=== PATIENT | female | born 1950 | race Caucasian/White ===

== ENCOUNTER → 2023-07-29 08:03 | Outpatient (REF) | payer MEDICARE, OTHER, SELFPAY | LOC: HWRCS 08:03 | PROVIDERS: ATTENDING PHYSICIAN Internal Medicine Cardiovascular Disease; FAMILY PHYSICIAN Internal Medicine | DX: R00.2 Palpitations (principal); I47.19 Other supraventricular tachycardia | CPT/HCPCS: 93306 ==

== ENCOUNTER → 2023-11-20 07:26 | Outpatient (REF) | payer MEDICARE, OTHER, SELFPAY | LOC: DHCBC/DCA 07:26 | PROVIDERS: ATTENDING PHYSICIAN Internal Medicine Cardiovascular Disease; FAMILY PHYSICIAN Internal Medicine | DX: R00.2 Palpitations (principal); I47.19 Other supraventricular tachycardia; R06.09 Other forms of dyspnea | CPT/HCPCS: 78452; 93017; A9500 ==

== ENCOUNTER → 2023-12-18 07:27 | Outpatient (REF) | payer MEDICARE, OTHER, SELFPAY ==
[2023-12-18 09:09] LABS: Hematocrit 39.6 % (37.0-47.0); Hemoglobin 13.6 g/dL (12.0-16.0); Mean Corp Hgb Conc. 34.3 g/dL (33.0-37.0); Mean Corpuscular Hgb 30.9 pg (27.0-31.0); Mean Platelet Volume 9.6 fL (7.4-10.4); Platelet Count 226 10^3/uL (130-400); Red Cell Dist. Width 12.1 % (11.5-14.5); White Blood Cell Count 3.9 10^3/uL (4.8-10.8)
[2023-12-18 12:31] LABS: Blood Urea Nitrogen 17 mg/dl (7-17); Carbon Dioxide 27 mmol/L (22-30); Chloride 104 mmol/L (98-107); Glucose 89 mg/dl (70-99); Potassium 4.7 mmol/L (3.5-5.1); Sodium 142 mmol/L (135-145); eGFR > 60.00
== END ==
LOC: SDSPAT 07:27
PROVIDERS: ATTENDING PHYSICIAN Obstetrics & Gynecology; FAMILY PHYSICIAN Internal Medicine
DX: Z01.818 Encounter for other preprocedural examination (principal)
CPT/HCPCS: 36415; 80048; 85027; 86850; 86900; 86901; 93005

== ENCOUNTER 2023-12-30 06:28 | Day surgery (SDC) | payer MEDICARE, OTHER, SELFPAY ==
[2023-12-18 07:51] VITALS: BMI 36.7
[2023-12-30] VITALS (12 sets, daily range): BP systolic 99–132; BP diastolic 50–72; BMI 36.7
[2023-12-30] MEDS: NORMOSOL-R/PLASMALYTE-A 1000 IV (09:55)
[2023-12-30] MEDS: Pyridium 200 MG PO (10:33)
[2023-12-30] MEDS: MOTRIN 600 MG PO (16:17)
== END 2023-12-30 17:45 | disposition home or self-care (01) ==
LOC: SDS 06:28
PROVIDERS: ATTENDING PHYSICIAN Obstetrics & Gynecology
DX: N81.11 Cystocele, midline (principal); N39.3 Stress incontinence (female) (male); Z92.3 Personal history of irradiation; N36.41 Hypermobility of urethra
CPT/HCPCS: 57282; 57240; 51715; 86900; 86901; L8606

== ENCOUNTER → 2024-03-27 07:39 | Outpatient (REF) | payer MEDICARE, OTHER, SELFPAY ==
[2024-03-27 09:23] LABS: % Basophils 1.8 % (0-2); % Eosinophils 5.7 % (0-6); % Immature Granulocytes 0.4 % (0-0.5); % Lymphocytes 24.6 % (20.5-51.1); % Monocytes 7.6 % (1.7-9.3); % Neutrophils 59.9 % (42.2-75.2); Absolute Basophils 0.1 10^3/uL (0-0.2); Absolute Eosinophils 0.3 10^3/uL (0-0.7); Absolute Lymphocytes 1.3 10^3/uL (1.2-3.4); Absolute Monocytes 0.4 10^3/uL (0.1-0.6); Absolute Neutrophils 3.2 10^3/uL (1.4-6.5); Hematocrit 43.8 % (37.0-47.0); Hemoglobin 14.4 g/dL (12.0-16.0); Mean Corp Hgb Conc. 32.9 g/dL (33.0-37.0); Mean Corpuscular Hgb 30.2 pg (27.0-31.0); Mean Corpuscular Volume 91.8 fL (81.0-99.0); Mean Platelet Volume 9.5 fL (7.4-10.4); Nucleated Red Blood Cells % 0 %; Platelet Count 246 10^3/uL (130-400); Red Blood Cell Count 4.77 10^6/uL (4.20-5.40); Red Cell Dist. Width 12.2 % (11.5-14.5); White Blood Cell Count 5.4 10^3/uL (4.8-10.8)
[2024-03-27 09:26] LABS: Urine Albumin Trace (Neg - Trace); Urine Bilirubin Negative (Negative); Urine Character Slightly Cloudy (Clear); Urine Color Yellow; Urine Glucose Negative (Negative); Urine Ketone Negative (Negative); Urine Leukocyte 2+ (Negative); Urine Nitrite Negative (Negative); Urine Occult Blood Trace (Negative); Urine Urobilinogen Negative (Neg - 1+)
[2024-03-27 09:35] LABS: ALT (SGPT) 20 U/L (0-35); AST (SGOT) 22 U/L (14-36); Albumin 4.4 g/dl (3.5-5.0); Alkaline Phosphatase 71 U/L (38-126); Blood Urea Nitrogen 17 mg/dl (7-17); Calcium 9.1 mg/dl (8.4-10.2); Carbon Dioxide 30 mmol/L (22-30); Chloride 102 mmol/L (98-107); Glucose 115 mg/dl (70-99); HDL Cholesterol 51 mg/dl; LDL Cholesterol, Calculated 115 mg/dl; Potassium 4.9 mmol/L (3.5-5.1); Sodium 141 mmol/L (135-145); Total Bilirubin 0.4 mg/dl (0.2-1.3); Total Cholesterol 185 mg/dl (50-199); Total Protein 7.1 g/dl (6.3-8.2); Triglyceride 99 mg/dl (10-149); Very Low Density Lipoprotein 19 mg/dl (0-30); eGFR > 60.00
[2024-03-27 09:53] LABS: Urine Bacteria Few (Negative); Urine Squamous Cell 26-30 /LPF (Few); Urine White Cell 16-20 /HPF (0-5)
[2024-03-27 10:06] LABS: Cortisol, Random 13.8 ug/dl; TSH 2.25 uIU/ml (0.47-4.68)
[2024-03-27 12:14] LABS: Glycohemoglobin (HgbA1c) 5.6 % (4.0-5.6)
== END ==
LOC: HWLAB 07:39
PROVIDERS: ATTENDING PHYSICIAN Internal Medicine
DX: N32.81 Overactive bladder (principal); E66.9 Obesity, unspecified; R63.5 Abnormal weight gain; K21.9 Gastro-esophageal reflux disease without esophagitis; K58.0 Irritable bowel syndrome with diarrhea
CPT/HCPCS: 36415; 80053; 80061; 81003; 81015; 82533; 83036; 83735; 84443; 85025

== ENCOUNTER → 2024-04-14 14:00 | Outpatient (REF) | payer MEDICARE, OTHER, SELFPAY | LOC: HWRAD 14:00 | PROVIDERS: ATTENDING PHYSICIAN Internal Medicine | DX: U07.1 COVID-19 (principal) | CPT/HCPCS: 71046 ==

== ENCOUNTER → 2024-04-17 13:02 | Outpatient (REF) | payer MEDICARE, OTHER, SELFPAY ==
[2024-04-17 16:49] LABS: Urine Albumin Negative (Neg - Trace); Urine Bilirubin Negative (Negative); Urine Character Clear (Clear); Urine Color Yellow; Urine Glucose Negative (Negative); Urine Ketone Negative (Negative); Urine Leukocyte 1+ (Negative); Urine Nitrite Negative (Negative); Urine Occult Blood Negative (Negative); Urine Specific Gravity 1.005 (<1.030); Urine Urobilinogen Negative (Neg - 1+)
[2024-04-17 17:11] LABS: Urine Red Blood Cell 0-2 /HPF (0-2)
[2024-04-17 17:12] LABS: Urine Bacteria Few (Negative)
== END ==
LOC: HWLAB 13:02
PROVIDERS: ATTENDING PHYSICIAN Obstetrics & Gynecology; FAMILY PHYSICIAN Internal Medicine
DX: N39.0 Urinary tract infection, site not specified (principal)
CPT/HCPCS: 81003; 81015; 87077; 87086

== ENCOUNTER → 2024-04-24 13:56 | Outpatient (REF) | payer MEDICARE, OTHER, SELFPAY | LOC: WDC 13:56 | PROVIDERS: ATTENDING PHYSICIAN Internal Medicine | DX: Z12.31 Encounter for screening mammogram for malignant neoplasm of breast (principal) | CPT/HCPCS: 77063; 77067 ==

== ENCOUNTER 2024-05-14 06:35 | Day surgery (SDC) | payer MEDICARE, OTHER, SELFPAY | END 2024-05-14 09:54 | disposition home or self-care (01) | LOC: GI 06:35 | PROVIDERS: ATTENDING PHYSICIAN Internal Medicine; FAMILY PHYSICIAN Internal Medicine | DX: K63.5 Polyp of colon (principal); K63.89 Other specified diseases of intestine; K57.30 Diverticulosis of large intestine without perforation or abscess without bleeding; R19.4 Change in bowel habit; R15.2 Fecal urgency; K31.89 Other diseases of stomach and duodenum; K44.9 Diaphragmatic hernia without obstruction or gangrene; Q39.9 Congenital malformation of esophagus, unspecified; R11.10 Vomiting, unspecified; R12 Heartburn; Z85.048 Personal history of other malignant neoplasm of rectum, rectosigmoid junction, and anus; Z92.3 Personal history of irradiation | CPT/HCPCS: 45380; 43239; 88305; 88342 ==

== ENCOUNTER 2024-08-11 06:30 | Outpatient (RCR) | payer MEDICARE, OTHER, SELFPAY | END 2024-08-11 23:59 | disposition home or self-care (01) | LOC: RPT 06:30 | PROVIDERS: ATTENDING PHYSICIAN Physician Assistant; FAMILY PHYSICIAN Internal Medicine | DX: N94.10 Unspecified dyspareunia (principal); Z73.6 Limitation of activities due to disability | CPT/HCPCS: 97112; 97163; 97530 ==

== ENCOUNTER → 2024-08-21 14:04 | Outpatient (REF) | payer MEDICARE, OTHER, SELFPAY | LOC: CLAB 14:04 | PROVIDERS: ATTENDING PHYSICIAN Surgery | DX: K62.89 Other specified diseases of anus and rectum (principal) | CPT/HCPCS: 88305 ==

== ENCOUNTER 2024-09-09 12:03 | Outpatient (RCR) | payer MEDICARE, OTHER, SELFPAY | END 2024-09-09 23:59 | disposition home or self-care (01) | LOC: RPT 12:03 | PROVIDERS: ATTENDING PHYSICIAN Physician Assistant; FAMILY PHYSICIAN Internal Medicine | DX: N94.10 Unspecified dyspareunia (principal); Z73.6 Limitation of activities due to disability | CPT/HCPCS: 97110; 97112; 97140; 97530 ==

== ENCOUNTER 2024-09-25 13:33 | Outpatient (RCR) | payer MEDICARE, OTHER, SELFPAY | END 2024-09-25 23:59 | disposition home or self-care (01) | LOC: RPT 13:33 | PROVIDERS: ATTENDING PHYSICIAN Physician Assistant; FAMILY PHYSICIAN Internal Medicine | DX: N94.10 Unspecified dyspareunia (principal); Z73.6 Limitation of activities due to disability | CPT/HCPCS: 97110; 97112; 97140 ==

== ENCOUNTER → 2024-10-15 10:00 | Outpatient (REF) | payer MEDICARE, OTHER, SELFPAY ==
[2024-10-15 19:25] LABS: Urine Character Clear (Clear)
== END ==
LOC: CLAB 10:00
PROVIDERS: ATTENDING PHYSICIAN Nurse Practitioner Family
DX: R39.9 Unspecified symptoms and signs involving the genitourinary system (principal)
CPT/HCPCS: 81003; 87086

== ENCOUNTER 2024-10-22 11:19 | Outpatient (RCR) | payer MEDICARE, OTHER, SELFPAY | END 2024-10-22 23:59 | disposition home or self-care (01) | LOC: RPT 11:19 | PROVIDERS: ATTENDING PHYSICIAN Physician Assistant; FAMILY PHYSICIAN Internal Medicine | DX: N94.10 Unspecified dyspareunia (principal); Z73.6 Limitation of activities due to disability | CPT/HCPCS: 97110; 97112; 97530 ==

== ENCOUNTER 2024-12-09 14:53 | Outpatient (RCR) | payer MEDICARE, OTHER, SELFPAY | END 2024-12-09 23:59 | disposition home or self-care (01) | LOC: RPT 14:53 | PROVIDERS: ATTENDING PHYSICIAN Physician Assistant; FAMILY PHYSICIAN Internal Medicine | DX: N94.10 Unspecified dyspareunia (principal); Z73.6 Limitation of activities due to disability; R39.15 Urgency of urination; R35.0 Frequency of micturition | CPT/HCPCS: 97110; 97112; 97140; 97530 ==

== ENCOUNTER 2025-01-13 11:14 | Outpatient (RCR) | payer MEDICARE, OTHER, SELFPAY | END 2025-01-13 23:59 | disposition home or self-care (01) | LOC: RPT 11:14 | PROVIDERS: ATTENDING PHYSICIAN Physician Assistant; FAMILY PHYSICIAN Internal Medicine | DX: N94.10 Unspecified dyspareunia (principal); Z73.6 Limitation of activities due to disability; R39.15 Urgency of urination; R35.0 Frequency of micturition | CPT/HCPCS: 97112; 97530 ==

== ENCOUNTER 2025-01-20 10:19 | Outpatient (RCR) | payer MEDICARE, OTHER, SELFPAY | END 2025-01-20 23:59 | disposition home or self-care (01) | LOC: RPT 10:19 | PROVIDERS: ATTENDING PHYSICIAN Physician Assistant; FAMILY PHYSICIAN Internal Medicine | DX: N94.10 Unspecified dyspareunia (principal); Z73.6 Limitation of activities due to disability; R39.15 Urgency of urination; R35.0 Frequency of micturition | CPT/HCPCS: 97112; 97140; 97530 ==

== ENCOUNTER 2025-02-17 11:03 | Outpatient (RCR) | payer MEDICARE, OTHER, SELFPAY | END 2025-02-17 23:59 | disposition home or self-care (01) | LOC: RPT 11:03 | PROVIDERS: ATTENDING PHYSICIAN Physician Assistant; FAMILY PHYSICIAN Internal Medicine | DX: N94.10 Unspecified dyspareunia (principal); Z73.6 Limitation of activities due to disability; R39.15 Urgency of urination; R35.0 Frequency of micturition | CPT/HCPCS: 97140; 97530 ==